=== PATIENT | male | born 1945 | race Two or more races ===

== ENCOUNTER 2020-02-24 07:43 | Day surgery (SDC) | payer OTHER | END 2020-02-24 13:15 | disposition home or self-care (01) | LOC: AMB-ENDOS 07:43 | PROVIDERS: ATTEND Surgery | DX: D12.3 Benign neoplasm of transverse colon (principal); D12.5 Benign neoplasm of sigmoid colon; K64.8 Other hemorrhoids; Z20.828 Contact with and (suspected) exposure to other viral communicable diseases ==